=== PATIENT | female | born 1970 | race Caucasian/White ===

== ENCOUNTER 2017-05-19 23:53 | Emergency (ER) | payer BC, OTHER ==
[~2017-05-19] VITALS: Ht 167.6 cm; Wt 54.4 kg
[2017-05-20] MEDS ORDERED: NORCO 5-325 TA1 EACH PO (01:05)
[2017-05-20] MEDS ORDERED: IBUPROFEN 800800 M1 PO (01:21)
[2017-05-20 01:29] VITALS: BP 109/64
== END 2017-05-20 01:29 | disposition home or self-care (01) ==
LOC: ER 23:53
DX: M25.532 Pain in left wrist (principal); F17.210 Nicotine dependence, cigarettes, uncomplicated; W18.39XA Other fall on same level, initial encounter; Y93.89 Activity, other specified; Y92.89 Other specified places as the place of occurrence of the external cause; Y99.8 Other external cause status